=== PATIENT | female | born 1985 | race Caucasian/White ===

== ENCOUNTER → 2020-04-15 11:55 | Outpatient (BNVA) | payer OTHER, SELFPAY | PROVIDERS: Visit Provider Nurse Practitioner Family | DX: J02.9 Acute pharyngitis, unspecified (principal); Z11.59 Encounter for screening for other viral diseases | CPT/HCPCS: 87635 ==

== ENCOUNTER → 2023-05-11 10:10 | Outpatient (BNVA) | payer MEDICAID, SELFPAY | PROVIDERS: Visit Provider Nurse Practitioner | DX: M67.471 Ganglion, right ankle and foot (principal) | CPT/HCPCS: 73630 ==

== ENCOUNTER 2023-09-06 08:00 | Oncology outpatient (recurring) (ONCR) | payer MEDICAID, SELFPAY ==
--- OUTSIDE RECORDS SUMMARY | 2023-08-21 07:20 | XMS_ITS | Patient Health Record ---
Author Name Unknown Organization [employer] [place] Address [address] 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 Name Role Phone Michelle Knight Unavailable [phone] ALLERGIES Allergen (clinical drug ingredient) Drug/Non Drug Allergy documented on EMR Reaction Allergy Type Onset Date Status acetaminophen / oxycodone Percocet Unknown Drug Allergy Active RESULTS Component Value Reference Range Notes LIPID PANEL, STANDARD (7600) Reviewed date:05/19/2023 11:30:55 AM Interpretation: Performing Lab:[facility]-[id number] Archana JaramilloaKS[address] Gila Camacho MD Notes/Report: 0 0 0 0 CHOLESTEROL, TOTAL 187 <200 mg/dL HDL CHOLESTEROL 51 > OR = 50 mg/dL TRIGLYCERIDES 104 <150 mg/dL LDL-CHOLESTEROL 115 Reference range: <100 Desirable range <100 mg/dL for primary prevention; <70 mg/dL for patients with CHD or diabetic patients with > or = 2 CHD risk factors. LDL-C is now calculated using the Mir-Villanueva calculation, which is a validated novel method providing better accuracy than the Friedewald equation in the estimation of LDL-C. Mir GRIER et al. ANASTASIA. 2013;310(19): 9030-9571 (http://education.T[employer].com/faq/FAQ 164) CHOL/HDLC RATIO 3.7 <5.0 (calc) NON HDL CHOLESTEROL 136 <130 mg/dL (calc) For patients with diabetes plus 1 major ASCVD risk factor, treating to a non-HDL-C goal of <100 mg/dL (LDL-C of <70 mg/dL) is considered a therapeutic option. COMPREHENSIVE METABOLIC PANE Raj ([id number]) Reviewed date:05/19/2023 11:32:28 AM Interpretation:Normal Performing Lab:BRENDAN [facility]-[id number] Nathalie [facility], [id number] Gila Camacho MD Notes/Report: 0 0 0 0 GLUCOSE 80 65-99 mg/dL Fasting reference interval UREA NITROGEN (BUN) 8 7-25 mg/dL CREATININE 0.61 0.50-0.99 mg/dL EGFR 116 > OR = 60 mL/min/1.73m2 BUN/CREATININE RATIO SEE NOTE: 6-22 (calc) Not Reported: BUN and Creatinine are within reference range. SODIUM 137 135-146 mmol/L POTASSIUM 3.8 3.5-5.3 mmol/L CHLORIDE 105 98-110 mmol/L CARBON DIOXIDE 24 20-32 mmol/L CALCIUM 9.1 8.6-10.2 mg/dL PROTEIN, TOTAL 6.9 6.1-8.1 g/dL ALBUMIN 4.1 3.6-5.1 g/dL GLOBULIN 2.8 1.9-3.7 g/dL (calc) ALBUMIN/GLOBULIN RATIO 1.5 1.0-2.5 (calc) BILIRUBIN, TOTAL 0.3 0.2-1.2 mg/dL ALKALINE PHOSPHATASE 56 31-125 U/L AST 8 10-30 U/L ALT 8 6-29 U/L CBC (INCLUDES DIFF/PLT) (189 9) Reviewed date:05/19/2023 11:31:58 AM Interpretation:Abnormal Performing Lab:BRENDAN [facility]-[id number] Nathalie Glass, [id number] Gila Camacho MD Notes/Report: 0 0 0 0 WHITE BLOOD CELL COUNT 9.8 3.8-10.8 Thousand/ uL RED BLOOD CELL COUNT 4.62 3.80-5.10 Million/uL HEMOGLOBIN 10.3 11.7-15.5 g/dL HEMATOCRIT 35.3 35.0-45.0 % MCV 76.4 80.0-100.0 fL MCH 22.3 27.0-33.0 pg MCHC 29.2 32.0-36.0 g/dL RDW 16.7 11.0-15.0 % PLATELET COUNT 375 140-400 Thousand/uL MPV 11.4 7.5-12.5 fL ABSOLUTE NEUTROPHILS 5596 8008-2251 cells/uL ABSOLUTE LYMPHOCYTES 2666 850-3900 cells/uL ABSOLUTE MONOCYTES 892 200-950 cells/uL ABSOLUTE EOSINOPHILS 500 15-500 cells/uL ABSOLUTE BASOPHILS 147 0-200 cells/uL NEUTROPHILS 57.1 LYMPHOCYTES 27.2 MONOCYTES 9.1 EOSINOPHILS 5.1 BASOPHILS 1.5 TSH W/REFLEX TO FT4 (89446) Reviewed date:05/19/2023 11:32:08 AM Interpretation:Normal Performing Lab:[facility]-[id number] Schilling, [id number] Gila Camacho MD Notes/Report: 0 0 0 0 TSH W/REFLEX TO FT4 0.79 Reference Range > or = 20 Years 0.40-4.50 Ranges First trimester 0.26-2.66 Second trimester 0.55-2.73 Third trimester 0.43-2.91 IRON, TIBC AND FERRITIN PANE L (5616) Reviewed date:05/26/2023 08:42:08 AM Interpretation:Abnormal Performing Lab:[facility]-Obdulia Schilling, HbomhtVQ[address] Gila Camacho MD Notes/Report: 0 0 IRON, TOTAL 20 40-190 mcg/dL IRON BINDING CAPACITY 508 250-450 mcg/dL (destiny c) % SATURATION 4 16-45 % (calc) FERRITIN 2 16-154 ng/mL RETICULOCYTE COUNT (793) Reviewed date:05/26/2023 08:41:31 AM Interpretation:Normal Performing Lab:[facility]-[id number] Schilling, [id number] Gila Camacho MD Notes/Report: 0 0 RETICULOCYTE COUNT, AUTOMATED 1.4 RETICULOCYTE, ABSOLUTE 14232 77971-65[address] cells/ uL FECAL GLOBIN BY IMMUNOCHEMIS TRY ([id number]) Reviewed date:06/01/2023 04:29:01 PM Interpretation:Negative Performing Lab:[facility] LenexaKS[address] Gila Camacho MD Notes/Report: FASTING: UNKNOWN FECAL GLOBIN BY IMMUNOCHEMISTRY SEE NOTE FECAL GLOBIN BY IMMUNOCHEMISTRY Micro Number: [id number] Test Status: Final Specimen Source: Fecal Specimen Quality: Adequate Fecal Globin: Not Detected REASON FOR REFERRAL Reason consult please Diagnosis 1 Ganglion cyst of rig ht foot (M67.471) Referral Organization [facility] Referring Provider First Name Michelle Referring Provider Last Name Referring Provider [facility] Referred Provider [facility] Spin [facility], [facility] General Notes Michelle Knight 04/19 09:54:19 AM >xray is pending, Yesy Perla 05/11/2023 01:29:55 PM >Xray attached. , Faxed referral., Yesy Perla 06/09/2023 11:01:06 AM >Attempt TC to [facility] Ortho & Spine. Left message inquiring about pt's appt. Requested a returned call., Yesy Perla 06/14/2023 11:37:19 AM >TC to [facility] Ortho & Spine. Referral was sent to [facility] Podiatry by their clinic, which is [phone]. Confirmed pt's appt 06/19/23 at 1:30 pm. Pt notified of the appt by their clinic. Referral Priority Routine Referral Appointment Date 06/19/2023 Reason consult please Diagnosis 1 Iron deficiency anem ia, unspecified iron deficiency anemia type (D50.9) Referral Organization [facility] Referring Provider First Name Michelle Referring Provider Last Name [facility] Referred Provider [facility] General Notes Michelle Knight 05/20 10:10:16 AM >please send all labs, Yesy Perla 06/12/2023 01:54:11 PM >All labs attached. Referral faxed., Yesy Perla 06/28/2023 04:09:02 PM >TC to Dr. Ventura's office. Confirmed pt's appt 07-17-23 at 2:30 pm. Pt notified by their clinic. Referral Priority Routine Referral Appointment Date 07/17/2023 Reason consult please for e gd and colonoscopy d/t iron def anemia. Diagnosis 1 Iron deficiency anem ia, unspecified iron deficiency anemia type (D50.9) Referral Organization [facility] Referring Provider First Name Michelle Referring Provider Last Name [facility] Referred Provider Johnson Cooper General Notes Michelle Knight 05/20 10:11:42 AM >send all labs, including stool test results please, Yesy Perla 06/12/2023 01:48:59 PM >All labs attached. Referral faxed., Yesy Perla 06/29/2023 09:39:10 AM >TC to Dr. Cooper's office. Confirmed pt's appt 07/18/23 at 12:30 pm. Pt notified of appt by their clinic. Referral Priority Routine Referral Appointment Date 07/18/2023 MEDICATIONS Medication SIG (Take, Route, Frequency, Duration) Notes Start Date End Date Status Ferrlecit 12.5 MG/ML as directed Intravenous one time dose for 1 days 125mg, IV , diluted , over 1hr 07/19/2023 Active Cold & Flu teraflu Not-Takin g Ferrous Sulfate 325 (65 Fe) MG 1 tablet Orally Monday , Monday, Monday for 30 days 05/26/2023 Not-Taking Lisinopril 20 MG 1 tablet Orally Once a day for 90 days dose increase. thanks/mw 06/12/2023 Active Ventolin HFA 108 (90 Base) MCG/ACT 2 puff as needed for cough or congestion Inhalation every 4 hrs for 14 09/22/2022 Not-Taking SOCIAL HISTORY Sex Assigned At : Social History Observation Description Sex Assigned At Female PROBLEMS Problem Type ICD Code Onset Dates Problem Status W/U Status Risk SNOMED Code Notes Problem Primary hypertension (I10) Active confirmed 63998307 Problem Microcytic anemia (D50.9) Active confirmed 490108113 Problem Iron deficiency anemia, unspecified iron deficiency anemia type (D50.9) Active confirmed 28242189 VITAL SIGNS Heart Rate 77 /min 06/12/2023 Temperature 97.5 degrees Fahrenheit 06/12/2023 Height-cm 154.94 cm 06/12/2023 Oximetry 99 % 06/12/2023 Blood pressure diastolic 90 mm Hg 06/12/2023 Weight-kg 84.19 kg 06/12/2023 Height 61 in 06/12/2023 Blood pressure systolic 152 mm Hg 06/12/2023 Weight 185.6 lbs 06/12/2023 BMI 35.06 kg/m2 06/12/2023 Encounters Encounter Location Date Provider Diagnosis [address] [address] 07/06/2023 [facility] [address] [place] [address] 09/22/2022 Michelle Knight Exposure to the flu Z20.828 and Bronchitis J40 [address] [address] 05/11/2023 Michelle Ganglion cyst of rig ht foot M67.471 ; Primary hypertension I10 and Cigarette smoker motivated to quit F17.[address] [address] 05/25/2023 Michelle [place] Microcytic anemia D50.[address] [address] 06/12/2023 [facility] Iron deficiency anemia, unspecified iron deficiency anemia type D50.9 ; Primary hypertension I10 ; Intolerance of drug Z78.9 and Former smoker Z87.[address] [address] 05/19/2023 [facility] Microcytic anemia D50.[address] [address] 05/26/2023 Michelle [place] Iron deficiency anemia, unspecified iron deficiency anemia type D50.9 ; Primary hypertension I10 and Microcytic anemia D50.[address] [address] 06/01/[address] [address] 06/02/[address] [address] [facility], unspecified iron deficiency anemia type D50.9 ASSESSMENTS Encounter Date Diagnosis Assessment Notes Treatment Notes Treatment Clinical Notes 09/22/2022 Bronchitis (ICD-10 - J40) 09/22/2022 Exposure to the flu (ICD-10 - Z20.828) 05/11/2023 Primary hypertension (ICD-10 - I10) 05/11/2023 Ganglion cyst of right foot (ICD-10 - M67.471) XRAY AT [facility] TODAY 05/19/2023 Microcytic anemia (ICD-10 - D50.9) 05/25/2023 Microcytic anemia (ICD-10 - D50.9) labs drawn by Sotero Foster LPN 05/26/2023 Iron deficiency anemia, unspecified iron deficiency anemia type (ICD-10 - D50.9) 06/12/2023 Primary hypertension (ICD-10 - I10) med increase. bring cuff to next visit 06/12/2023 Iron deficiency anemia, unspecified iron deficiency anemia type (ICD-10 - D50.9) Iron-Rich Diet: Care Instructions material was printed 06/15/2023 Iron deficiency anemia, unspecified iron deficiency anemia type (ICD-10 - D50.9) 06/12/2023 Intolerance of drug (ICD-10 - Z78.9) will try to get approved for iv iron therapy 05/26/2023 Primary hypertension (ICD-10 - I10) 05/11/2023 Cigarette smoker motivated to quit (ICD-10 - F17.210) 05/26/2023 Microcytic anemia (ICD-10 - D50.9) 06/12/2023 Former smoker (ICD-10 - Z87.891) quit 05/21/23 PLAN OF TREATMENT Future Test Test Name Order Date IRON, TIBC AND FERRITIN PANEL (5616) CBC (INCLUDES DIFF/PLT) (6399) Next Appt Details Provider Name:Michelle Knight , 08/28/2023 08:15:00 AM, [address], [address], Provider Name:Michelle Knight , 09/04/2023 09:00:00 AM, [address], [facility], [place], [address], Insurance Providers Payer Name Payer Address Payer Phone Subscriber Number Group Number Insured Name Patient Relationship to Insured Coverage Start Date Coverage End Date [facility] [address] [place] [address] [id number] Dejon Rosemarie Self - patient is the insured MEDICAL (GENERAL) HISTORY Medical History History ICD Code last pap 2008. HD. normal
[2023-08-21 08:59] LABS: Basophils # 0.1 10^3/uL (0.0-0.1); Basophils % 1.5 %; Eosinophils # 0.7 10^3/uL (0.0-0.8); Eosinophils % 7.4 %; Hematocrit 35.2 % (36-47); Lymphocytes # 2.3 10^3/uL (0.8-4.8); Lymphocytes % 23.4 %; Mean Corpuscular HGB Conc 30.7 g/dL (30-55); Mean Corpuscular Hemoglobin 22.8 pg (27-33); Mean Corpuscular Volume 74.3 fl (85-98); Mean Platelet Volume 11.3 fL (7.4-10.4); Monocytes # 0.9 10^3/uL (0.2-0.9); Monocytes % 9.2 %; Neutrophils # 5.63 10^3/uL (1.8-7.7); Neutrophils % 58.4 %; Nucleated Red Blood Cells % 0 %; Platelet Count 322 10^3/cmm (157-399); Red Blood Count 4.74 10^6/uL (3.85-5.65); Red Cell Distribution Width 17.4 % (12.1-15.1); Reticulocyte % 1.3 % (0.5-2.0); White Blood Count 9.64 10^3/uL (3.29-11.43)
[2023-08-21 09:25] LABS: Alanine Aminotransferase 7 U/L (0-33); Albumin Level 4.1 g/dL (3.5-5.2); Alkaline Phosphatase 69 U/L (35-105); Anion Gap 15.9 (5-19); Aspartate Amino Transferase 10 U/L (0-32); Blood Urea Nitrogen 9 mg/dL (6-20); Calcium 9.1 mg/dL (8.5-10.5); Carbon Dioxide 20 mmol/L (22-29); Chloride 104 mmol/L (98-107); Ferritin 8 ng/mL (15-150); Globulin 3.2 g/dL (1.3-4.6); Glomerular Filtration Rate 110.7 mL/min (90-130); Glucose 93 mg/dL (65-115); Iron 16 ug/dL (37-145); Osmolality Calculated 280 mOsm/kg (285-295); Percent Saturation 3.6 % (20-50); Potassium 3.9 mmol/L (3.5-5.1); Sodium 136 mmol/L (136-145); Total Bilirubin 0.2 mg/dL (0.15-1.2); Total Iron Binding Capacity 433 mcg/dl; Total Protein 7.3 g/dL (6.6-8.7); Unsaturated Iron Binding 417 ug/dL (112-347)
[2023-08-21 09:41] LABS: Vitamin B12 323 pg/mL (232-1245)
[2023-08-21 09:42] LABS: Folate Level 6.8 ng/mL (4.8-37.3)
[2023-08-25 08:05] VITALS: BP 151/99; PULSE 74; RESP 16; TEMP 36.8; O2SAT 99
[2023-08-25] MEDS: sodium chloride 0.9% (100 ml) 100 ML 75 ML (08:34)
[2023-08-25] MEDS: iron sucrose 200 MG in sodium chloride 0.9% (100 ml) 100 ML 220 MG IV (08:35)
[2023-08-25 09:15] VITALS: BP 143/81; PULSE 61; RESP 16; TEMP 36.8; O2SAT 100
[2023-08-28] MEDS: iron sucrose 200 MG in sodium chloride 0.9% (100 ml) 100 ML 220 MG IV (09:18)
[2023-08-28 09:45] VITALS: BP 158/102; PULSE 63; TEMP 36.4; O2SAT 99
[2023-08-30] MEDS: iron sucrose 200 MG in sodium chloride 0.9% (100 ml) 100 ML 220 MG IV (09:42)
[2023-08-30] MEDS: sodium chloride 0.9% 250 ML 75 ML IV (09:42)
[2023-08-30 10:20] VITALS: BP 148/95; PULSE 75; RESP 16; TEMP 36.7; O2SAT 99
[2023-09-04 08:15] VITALS: BP 144/92; PULSE 73; RESP 16; TEMP 36.8; O2SAT 99
[2023-09-04] MEDS: sodium chloride 0.9% 250 ML 75 ML IV (08:23)
[2023-09-04] MEDS: iron sucrose 200 MG in sodium chloride 0.9% (100 ml) 100 ML 220 MG IV (08:23)
[2023-09-04 09:00] VITALS: BP 144/92; PULSE 73; RESP 16; TEMP 36.8; O2SAT 99
[2023-09-06 08:00] VITALS: BP 130/88; PULSE 71; RESP 16; TEMP 37.2; O2SAT 99
[2023-09-06] MEDS: sodium chloride 0.9% 250 ML 75 ML IV (08:16)
[2023-09-06] MEDS: iron sucrose 200 MG in sodium chloride 0.9% (100 ml) 100 ML 220 MG IV (08:33)
[2023-09-06 09:15] VITALS: BP 129/86; PULSE 62; RESP 16; TEMP 37.2; O2SAT 99
== END 2023-09-17 23:59 | disposition home or self-care (01) ==
PROVIDERS: Visit Provider Internal Medicine
DX: Z53.9 Procedure and treatment not carried out, unspecified reason (principal); D50.9 Iron deficiency anemia, unspecified
CPT/HCPCS: 36415; 80053; 82607; 82728; 82746; 83540; 83550; 85025; 85045; 96365; J1756; J7050

== ENCOUNTER 2023-09-29 07:05 | Day surgery (SDC) | payer MEDICAID, SELFPAY ==
--- OUTSIDE RECORDS SUMMARY | 2023-08-28 09:45 | XMS_ITS | Patient Health Record ---
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 Mir GRIER et al. ANASTASIA. 2013;310(19): 0891-1899 (http://education.[employer].com/faq/FAQ 164) CHOL/HDLC RATIO 3.7 <5.0 (calc) NON HDL CHOLESTEROL 136 <130 mg/dL (calc) For patients with diabetes plus 1 major ASCVD risk factor, treating to a non-HDL-C goal of <100 mg/dL (LDL-C of <70 mg/dL) is considered a therapeutic option. COMPREHENSIVE METABOLIC PANE Raj (29201) Reviewed date:05/19/2023 11:32:28 AM Interpretation:Normal Performing Lab:BRENDAN [facility]-[id number] Nathalie [facility], YvzpedPM[address] Gila Camacho MD Notes/Report: 0 0 0 [...] ALT 8 6-29 U/L CBC (INCLUDES DIFF/PLT) (089 9) Reviewed date:05/19/2023 11:31:58 AM Interpretation:Abnormal Performing Lab:BRENDAN [facility]-[id number] Nathalie Glass, [id number] Gila Camacho MD Notes/Report: 0 0 0 0 WHITE BLOOD CELL COUNT 9.8 3.8-10.8 Thousand/ uL RED BLOOD CELL COUNT 4.62 3.80-5.10 Million/uL HEMOGLOBIN 10.3 11.7-15.5 g/dL HEMATOCRIT 35.3 35.0-45.0 % MCV 76.4 80.0-100.0 fL MCH 22.3 27.0-33.0 pg MCHC 29.2 32.0-36.0 g/dL RDW 16.7 11.0-15.0 % PLATELET COUNT 375 140-400 Thousand/uL MPV 11.4 7.5-12.5 fL ABSOLUTE NEUTROPHILS 5596 7774-2400 cells/uL ABSOLUTE LYMPHOCYTES 2666 850-3900 cells/uL ABSOLUTE MONOCYTES 892 200-950 cells/uL ABSOLUTE EOSINOPHILS 500 15-500 cells/uL ABSOLUTE BASOPHILS 147 0-200 cells/uL NEUTROPHILS 57.1 LYMPHOCYTES 27.2 MONOCYTES 9.1 EOSINOPHILS 5.1 BASOPHILS 1.5 TSH W/REFLEX TO FT4 (86444) Reviewed date:05/19/2023 11:32:08 AM Interpretation:Normal Performing Lab:[facility]-[id number] Schilling, TwizytQE[address] Gila Camacho MD Notes/Report: 0 0 0 0 TSH W/REFLEX TO FT4 0.79 Reference Range > or = 20 Years 0.40-4.50 Ranges First trimester 0.26-2.66 Second trimester 0.55-2.73 Third trimester 0.43-2.91 IRON, TIBC AND FERRITIN PANE L (5616) Reviewed date:05/26/2023 08:42:08 AM Interpretation:Abnormal Performing Lab:[facility]-Obdulia Schilling, KexxonHK[address] Gila Camacho MD Notes/Report: 0 0 IRON, TOTAL 20 40-190 mcg/dL IRON BINDING CAPACITY 508 250-450 mcg/dL (destiny c) % SATURATION 4 16-45 % (calc) FERRITIN 2 16-154 ng/mL RETICULOCYTE COUNT (793) Reviewed date:05/26/2023 08:41:31 AM Interpretation:Normal Performing Lab:[facility]-[id number] Schilling, KtqjtmHV[address] Gila Camacho MD Notes/Report: 0 0 RETICULOCYTE COUNT, AUTOMATED 1.4 RETICULOCYTE, ABSOLUTE 03458 [address] cells/ uL FECAL GLOBIN BY IMMUNOCHEMIS TRY (26821) Reviewed date:06/01/2023 04:29:01 PM Interpretation:Negative Performing Lab:[facility] LenexaKS[address] Gila Camacho MD Notes/Report: FASTING: UNKNOWN FECAL GLOBIN BY IMMUNOCHEMISTRY SEE NOTE FECAL GLOBIN BY IMMUNOCHEMISTRY Micro Number: [id number] Test Status: Final Specimen Source: Fecal Specimen Quality: Adequate Fecal Globin: Not Detected REASON FOR REFERRAL Reason consult please Diagnosis 1 Ganglion cyst of rig ht foot (M67.471) Referral Organization [facility] Referring Provider First Name Michelle Referring Provider Last Name Referring Provider [facility] Referred Provider Orthopedics And Spin [facility], [facility] General Notes Michlele Knight 04/19 09:54:19 AM >xray is pending, Yesy Perla 05/11/2023 01:29:55 PM >Xray attached. , Faxed referral., Yesy Perla 06/09/2023 11:01:06 AM >Attempt TC to [facility] Ortho & Spine. Left message inquiring about pt's appt. Requested a returned call., Yesy Pelra 06/14/2023 11:37:19 AM >TC to [facility] Ortho & Spine. Referral was sent to [facility] Podiatry by their clinic, which is [phone]. Confirmed pt's appt 06/19/23 at 1:30 pm. Pt notified of the appt by their clinic. Referral Priority Routine Referral Appointment Date 06/19/2023 Reason consult please Diagnosis 1 Iron deficiency anem ia, unspecified iron deficiency anemia type (D50.9) Referral Organization [facility] Referring Provider First Name Michelle Referring Provider Last Name [facility] Referred Provider Prieto Ventura Md [...] iron deficiency anemia type (D50.9) Referral Organization [facility] Referring Provider First Name Michelle Referring Provider Last Name [facility] Referred Provider Johnson Cooper General [...] Notes Problem Primary hypertension (I10) Active confirmed 74038010 Problem Microcytic anemia (D50.9) Active confirmed 650683581 Problem Iron deficiency anemia, unspecified iron deficiency anemia type (D50.9) Active confirmed 30081667 VITAL SIGNS Heart Rate 77 /min 06/12/2023 Temperature 97.5 degrees Fahrenheit 06/12/2023 Height-cm 154.94 cm 06/12/2023 Oximetry 99 % 06/12/2023 Blood pressure diastolic 90 mm Hg 06/12/2023 Weight-kg 84.19 kg 06/12/2023 Height 61 in 06/12/2023 Blood pressure systolic 152 mm Hg 06/12/2023 Weight 185.6 lbs 06/12/2023 BMI 35.06 kg/m2 06/12/2023 Encounters Encounter Location Date Provider Diagnosis [address] [address] 07/06/2023 Michelle [place] [address] [address] 08/28/[address] [address] 09/22/2022 Michelle Knight Exposure to the flu Z20.828 and Bronchitis J40 [address] [address] 05/11/2023 Michelle Knight Ganglion cyst of rig ht foot M67.471 ; Primary hypertension I10 and Cigarette smoker motivated to quit F17.[address] [address] 05/25/2023 Michelle Knight Microcytic anemia D50.[address] [address] 06/12/2023 Michelle [place] Iron deficiency anemia, unspecified iron deficiency anemia type D50.9 ; Primary hypertension I10 ; Intolerance of drug Z78.9 and Former smoker Z87.[address] [address] 05/19/2023 Michelle Knight Microcytic anemia D50.[address] [address] 05/26/2023 Michelle [place] Iron deficiency anemia, unspecified iron deficiency anemia type D50.9 ; Primary hypertension I10 and Microcytic anemia D50.[address] [address] 06/01/[address] [address] 06/02/[address] [address] 06/15/2023 Michelle [place] Iron deficiency anemia, unspecified iron deficiency anemia type D50.9 ASSESSMENTS Encounter Date Diagnosis Assessment Notes Treatment Notes Treatment Clinical Notes 09/22/2022 Bronchitis (ICD-10 - J40) 09/22/2022 Exposure to the flu (ICD-10 - Z20.828) 05/11/2023 Primary hypertension (ICD-10 - I10) 05/11/2023 Ganglion cyst of right foot (ICD-10 - M67.471) XRAY AT [facility] TODAY 05/19/2023 Microcytic anemia (ICD-10 - [...] FERRITIN PANEL (5616) CBC (INCLUDES DIFF/PLT) (6399) 3 Insurance Providers Payer Name Payer Address Payer Phone Subscriber Number Group Number Insured Name Patient Relationship to Insured Coverage Start Date Coverage End Date [facility] [address] [facility] [phone] [id number] Hand, Rosemarie Self - patient is the insured MEDICAL (GENERAL) HISTORY Medical History History ICD Code last pap 2008. HCHD. normal
[2023-09-29] VITALS (8 sets, daily range): BP systolic 100–165; BP diastolic 60–103; PULSE 60–75; RESP 14–17; TEMP 36.3–36.8; O2SAT 94–100; BMI 31.6
--- OUTSIDE RECORDS SUMMARY | 2023-09-29 07:08 | XMS_ITS | Patient Health Record ---
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 Mir GRIER et al. ANASTASIA. 2013;310(19): 6028-5069 (http://education.[employer].com/faq/FAQ 164) CHOL/HDLC RATIO 3.7 <5.0 (calc) NON HDL CHOLESTEROL 136 <130 mg/dL (calc) For patients with diabetes plus 1 major ASCVD risk factor, treating to a non-HDL-C goal of <100 mg/dL (LDL-C of <70 mg/dL) is considered a therapeutic option. COMPREHENSIVE METABOLIC PANE Raj (90236) Reviewed date:05/19/2023 11:32:28 AM Interpretation:Normal Performing Lab:[facility]-[id number] Nathalie [facility], [id number] Gila Camacho MD Notes/Report: 0 0 0 [...] ALT 8 6-29 U/L CBC (INCLUDES DIFF/PLT) (319 9) Reviewed date:05/19/2023 11:31:58 AM Interpretation:Abnormal Performing Lab:[facility]-[id number] Nathalie Glass, DvlzdcLF[address] Gila Camacho MD Notes/Report: 0 0 0 0 WHITE BLOOD CELL COUNT 9.8 3.8-10.8 Thousand/ uL RED BLOOD CELL COUNT 4.62 3.80-5.10 Million/uL HEMOGLOBIN 10.3 11.7-15.5 g/dL HEMATOCRIT 35.3 35.0-45.0 % MCV 76.4 80.0-100.0 fL MCH 22.3 27.0-33.0 pg MCHC 29.2 32.0-36.0 g/dL RDW 16.7 11.0-15.0 % PLATELET COUNT 375 140-400 Thousand/uL MPV 11.4 7.5-12.5 fL ABSOLUTE NEUTROPHILS 5596 7770-9078 cells/uL ABSOLUTE LYMPHOCYTES 2666 850-3900 cells/uL ABSOLUTE MONOCYTES 892 200-950 cells/uL ABSOLUTE EOSINOPHILS 500 15-500 cells/uL ABSOLUTE BASOPHILS 147 0-200 cells/uL NEUTROPHILS 57.1 LYMPHOCYTES 27.2 MONOCYTES 9.1 EOSINOPHILS 5.1 BASOPHILS 1.5 TSH W/REFLEX TO FT4 (67914) Reviewed date:05/19/2023 11:32:08 AM Interpretation:Normal Performing Lab:[facility]-[id number] Schilling, [id number] Gila Camacho MD Notes/Report: 0 0 0 0 TSH W/REFLEX TO FT4 0.79 Reference Range > or = 20 Years 0.40-4.50 Ranges First trimester 0.26-2.66 Second trimester 0.55-2.73 Third trimester 0.43-2.91 IRON, TIBC AND FERRITIN PANE L (5616) Reviewed date:05/26/2023 08:42:08 AM Interpretation:Abnormal Performing Lab:[facility]-Obdulia Schilling, [id number] Gila Camacho MD Notes/Report: 0 0 IRON, TOTAL 20 40-190 mcg/dL IRON BINDING CAPACITY 508 250-450 mcg/dL (destiny c) % SATURATION 4 16-45 % (calc) FERRITIN 2 16-154 ng/mL RETICULOCYTE COUNT (793) Reviewed date:05/26/2023 08:41:31 AM Interpretation:Normal Performing Lab:[facility]-Gimruk71827Saul Schilling, QsrvrxMS[address] Gila Camacho MD Notes/Report: 0 0 RETICULOCYTE COUNT, AUTOMATED 1.4 RETICULOCYTE, ABSOLUTE 27754 48801-[address] cells/ uL FECAL GLOBIN BY IMMUNOCHEMIS TRY ([id number]) Reviewed date:06/01/2023 04:29:01 PM Interpretation:Negative Performing Lab:[facility] [id number] Gila Camacho MD Notes/Report: FASTING: UNKNOWN FECAL GLOBIN BY IMMUNOCHEMISTRY SEE NOTE FECAL GLOBIN BY IMMUNOCHEMISTRY Micro Number: [id number] Test Status: Final Specimen Source: Fecal Specimen Quality: Adequate Fecal Globin: Not Detected REASON FOR REFERRAL Reason consult please Diagnosis 1 Ganglion cyst of rig ht foot (M67.471) Referral Organization [facility] Referring Provider First Name Michelle Referring Provider Last Name Referring Provider [facility] Referred Provider [facility], [facility] General Notes Michelle Knight 04/19 09:54:19 AM >xray is pending, eYsy Perla 05/11/2023 01:29:55 PM >Xray attached. , Faxed referral., Yesy Perla 06/09/2023 11:01:06 AM >Attempt TC to [facility] Ortho [facility] Spine. Left message inquiring about pt's appt. Requested a returned call., Yesy Perla 06/14/2023 11:37:19 AM >TC to [facility] Ortho & Spine. Referral was sent to [facility] Podiatry by their clinic, which is [phone]. Confirmed pt's appt 06/19/23 at 1:30 pm. Pt notified of the appt by their clinic. Referral Priority Routine Referral Appointment Date 06/19/2023 Reason consult please Diagnosis 1 Iron deficiency anem ia, unspecified iron deficiency anemia type (D50.9) Referral Organization [employer] Referring Provider First Name Michelle Referring Provider Last Name [facility]erred Provider Prieto [facility] General Notes [...] iron deficiency anemia type (D50.9) Referral Organization [employer] Referring Provider First Name Michelle Referring Provider Last Name [facility] Referred Provider Johnson Cooper General Notes Michelle [...] Notes Problem Primary hypertension (I10) Active confirmed [id number] Problem Microcytic anemia (D50.9) Active confirmed [id number] Problem Iron deficiency anemia, unspecified iron deficiency anemia type (D50.9) Active confirmed [id number] VITAL SIGNS Heart Rate 77 /min 06/12/2023 Temperature 97.5 degrees Fahrenheit 06/12/2023 Height-cm 154.94 cm 06/12/2023 Oximetry 99 % 06/12/2023 Blood pressure diastolic 90 mm Hg 06/12/2023 Weight-kg 84.19 kg 06/12/2023 Height 61 in 06/12/2023 Blood pressure systolic 152 mm Hg 06/12/2023 Weight 185.6 lbs 06/12/2023 BMI 35.06 kg/m2 06/12/2023 Encounters Encounter Location Date Provider Diagnosis [address] [address] 07/06/2023 Michelle [facility] [address] [place] [phone] 08/28/[address] [address] 09/04/[address] [address] 05/11/2023 Michelle Knight Ganglion cyst of rig ht foot M67.471 ; Primary hypertension I10 and Cigarette smoker motivated to quit F17.[address] [address] 05/25/2023 Michelle Knight Microcytic anemia D50.[address] [address] 06/12/2023 Michelle Knight Iron deficiency anemia, unspecified iron deficiency anemia type D50.9 ; Primary hypertension I10 ; Intolerance of drug Z78.9 and Former smoker Z87.[address] [address] 05/19/2023 Michelle Knight Microcytic anemia D50.[address] [address] 05/26/2023 Michelle Knight Iron deficiency anemia, unspecified iron deficiency anemia type D50.9 ; Primary hypertension I10 and Microcytic anemia D50.[address] [address] 06/01/[address] [address] 06/02/[address] [address] 06/15/2023 Michelle Knight Iron deficiency anemia, unspecified iron deficiency anemia type D50.9 ASSESSMENTS Encounter Date Diagnosis Assessment Notes Treatment Notes Treatment Clinical Notes 05/11/2023 Primary hypertension (ICD-10 - I10) 05/11/2023 Ganglion cyst of right foot (ICD-10 - M67.471) XRAY AT [facility] TODAY 05/19/2023 Microcytic anemia (ICD-10 - [...] Coverage Start Date Coverage End Date Home [facility] [address] [place] [address] [id number] HandRosemarie Self - patient is the insured MEDICAL (GENERAL) HISTORY Medical History History ICD Code last pap 2008. HCHD. normal
[2023-09-29] MEDS: gabapentin 300 mg Capsule PO (07:39)
[2023-09-29] MEDS: sodium chloride 0.9% 1,000 ML 30 ML IV (07:39)
[2023-09-29] MEDS: CELEcoxib 200 mg Capsule 400 MG PO (07:39)
[2023-09-29 07:50] LABS: OR HCG Qualitative Urine Negative (Negative)
--- NOTE | 2023-09-29 08:56 | ANES.PREANE2 ---
Pre-Anesthetic Assessment Height/Weight: Height 1.57 m Weight 78.471 kg Temp Pulse Resp BP Pulse Ox O2 Del Method 97.4 F L 69 17 165/103 98 Room Air 09/29/23 07:27 09/29/23 07:27 09/29/23 07:27 09/29/23 07:27 09/29/23 07:27 09/29/23 07:36 Preop Diagnosis: Ganglion cyst right foot Operation Date: 09/29/23 08:55 Proposed Procedures p :?Neuroplasty right foot and Excision of ganglion cyst right foot 70459,45407,G57.61,M67.471(Right) - Salvador Rubalcava DPM Last intake: Intake Last Liquid Date 09/28/23 Last Liquid Time 22:00 Last Solid Date 09/28/23 Last Solid Time 22:00 Social Tobacco (Cannabis ) and No alcohol Exam alert, oriented x 3, clear to auscultation bilaterally and regular rate & rhythm Airway Submandibular: within normal limits Cervical ROM: within normal limits Mallampati: Class I History/ROS No significant history except as noted Anesthetic Plan ASA status: 2 Anesthesia: MAC (Sedation disc) Medications/Allergies Home Medications Medication Instructions Recorded Confirmed Last Taken Type lisinopril 20 mg tablet 20 mg PO DAILY 08/21/23 09/28/23 09/28/23 History pantoprazole 40 mg tablet,delayed 40 mg PO DAILY #30 tabs 08/21/23 09/28/23 09/28/23 Rx release (Protonix) Allergies Allergy/AdvReac Type Severity Reaction Status Date / Time acetaminophen [From Percocet] Allergy ADR-Nausea Verified 09/29/23 07:23 hydrocodone Allergy ADR-Nausea Verified 09/29/23 07:23 oxycodone [From Percocet] Allergy ADR-Nausea Verified 09/29/23 07:23 Current Medications Generic Name Dose Route Start Last Admin Trade Name Freq PRN Reason Stop Dose Admin Sodium Chloride 1,000 mls @ 30 mls/hr 09/29/23 07:15 09/29/23 07:39 Sodium Chloride 0.9% IV 09/30/23 07:14 30 mls/hr .Q24H MO Administration PFSH Anesthesia Female Reproductive History Date of last menstrual period: 09/22/23 Data Anesthesia Cardiac Studies: No Data to Display
--- NOTE | 2023-09-29 09:00 | P.HPUD_ITS ---
Surgery/Procedure H&P Update DATE OF PROCEDURE: September 29, 2023 DATE H&P PERFORMED: 09/29/23 H&P UPDATE INFORMATION: I have reviewed H&P completed within last 30 days, I have examined patient prior to procedure, No changes to prior documentation and H&P is in [facility] EMR on date indicated CHANGES TO PREVIOUS DOCUMENTATION: None PREOP DIAGNOSIS: Ganglion cyst right foot PLANNED PROCEDURE: Operation Date: 09/29/23 08:55 Proposed Procedures p :?Neuroplasty right foot and Excision of ganglion cyst right foot 85962,14504,G57.61,M67.471(Right) - Salvador Rubalcava DPM
--- NOTE | 2023-09-29 09:01 | P.HP_ITS ---
Providers/Chief Complaint Chief Complaint: M67.471 History of Present Illness 38 year old female patient presenting to clinic for evaluation of a mass on her right mid-foot. Patient states that mass has been present for about 14 years. She also states that mass was non-painful until April 2023. Patient reports having shooting pain when wearing shoes or anything touching it hurts. Patient denies any trauma or injury to right foot. She has an impressive nodule present to right mid-foot. It is so big that she can no longer wear regular shoes, states that she wanted it removed years ago but she was a single mother of 4 children, is now able to take time to recover would like to have it removed at next available opportunity. Describes the nature of the pain as sharp and nervelike. She has a colonoscopy coming up in first week of September 2023. Patient denies any subjective nausea, vomiting, fever, chills, shortness of breath or chest pain. Review of Systems General: Reports: 10 or more systems reviewed and unremarkable except in HPI and below Const: Denies: fever(s) or chills Eyes: Denies: change in vision Card: Denies: chest pain or palpitations Resp: Denies: dyspnea or productive cough GI: Denies: abdominal pain, nausea or vomiting : Denies: flank pain Musc: Reports: extremity pain, joint pain, joint stiffness, limited range of motion and deformity Skin/Breast: Reports: skin tenderness; Denies: rash Neuro: Reports: difficulty walking; Denies: numbness in extremities, sensory changes or frequent falls Psych: Denies: suicidal ideation Luke/Lymph: Denies: easy bruising Medications/Allergies Home Medications Medication Instructions Recorded Confirmed Last Taken Type lisinopril 20 mg tablet 20 mg PO DAILY 08/21/23 09/28/23 09/28/23 History pantoprazole 40 mg tablet,delayed 40 mg PO DAILY #30 tabs 08/21/23 09/28/23 09/28/23 Rx release (Protonix) Allergies Allergy/AdvReac Type Severity Reaction Status Date / Time acetaminophen [From Percocet] Allergy ADR-Nausea Verified 09/29/23 07:23 hydrocodone Allergy ADR-Nausea Verified 09/29/23 07:23 oxycodone [From Percocet] Allergy ADR-Nausea Verified 09/29/23 07:23 [facility] Female Reproductive History: Date of last menstrual period: 09/22/23 Vital Signs Vitals Signs: Last Vital Signs Temp 97.4 F L 09/29/23 07:27 Pulse 69 09/29/23 07:27 Resp 17 09/29/23 07:27 BP 165/103 09/29/23 07:27 Pulse Ox 98 09/29/23 07:27 O2 Del Method Room Air 09/29/23 07:36 Weight: Weight last 48 hrs Weight 173 lb Physical Exam Narrative: EXAM NARRATIVE: Patient is alert and oriented ?3 and in no acute distress. The following is a focused bilateral lower extremity exam. VASCULAR: Dorsalis pedis and posterior tibial arteries palpable +2. Capillary refill time less than 3 seconds to the distal hallux bilaterally. Calf is supple and nontender proximally and distally. No pedal edema appreciated. Pedal hair growth present. NEUROLOGICAL: Epicritic and protopathic sensations grossly intact to the lower extremities. +2 Achilles tendon reflex noted bilaterally. Positive Tinel on percussion of the deep peroneal nerve right foot. DERMATOLOGICAL: Lower extremity skin is well-hydrated, normal texture and turgor. There are no open sores or lesions noted to the lower extremities. No erythema or ecchymosis present to the bilateral legs and feet. MUSCULOSKELETAL: Pain to palpation soft tissue mass at right dorsal foot, is fluid-filled and transilluminates is well-circumscribed located at the dorsal aspect of the right second tarsometatarsal joint. Soft tissue mass measures 2.5 cm x 2.5 cm. Muscle strength graded +5 for dorsiflexion plantarflexion, lizandro ion and inversion of right foot and toes. CARDIOVASCULAR: S1, S2, normal rate, normal rhythm. Dorsalis pedis and posterior tibial arteries palpable. LUNGS: Clear to auscltation, no use of acessory muscles, no crackles or wheezes. A&P Assessment and plan (1) Neuritis of right foot: (2) Ganglion cyst of right foot: Plan Patient examined evaluated, findings and treatment options discussed with patient at length. She has nerve entrapment requiring neuroplasty to the right deep peroneal nerve, adjacent ganglion cyst also symptomatic and patient wishing for surgical excision. I reviewed at length with the patient, the risks, potential complications, benefits, alternatives, expectations, and typical outcomes associated with the surgery. The risks and potential complications were explained in detail, including but not limited to infection, wound dehiscence or soft tissue complications, bleeding and hematoma, chronic edema, neuritis or nerve damage producing numbness or chronic pain, CRPS, failure to relieve pain or worsening pain, thick / painful / unsightly scar, limited motion / stiffness, malposition, delayed union, malunion, or nonunion, fracture, reaction to implants, anesthetic complications, venous thromboembolism, and deformity recurrence. I discussed the notion of no regrets with the patient as it pertains to complications and outcomes. The patient seemed to understand the nature of the proposed care and required convalescence. They asked appropriate questions, answered to their satisfaction. They are aware no guarantees can be made as to a satisfactory outcome and they understand there may be other possible unforeseen complications or outcomes not listed here that will be treated accordingly if they arise. There were no written or implied guarantees given to the patient. They gave informed consent to proceed. Neuroplasty and ganglion cyst excision right foot 09/01/2024 outpatient Local MAC versus LMA per anesthesia preference Gurney, supine 60 minutes Coding Level of Care Code Acute Code for Chg Fwd Diagnoses Neuritis of right foot G57.91 Ganglion cyst of right foot M67.471
[2023-09-29] MEDS: ceFAZolin 2,000 MG in sodium chloride 0.9% (plus) 50 ML 100 MG IV (09:10)
[2023-09-29] MEDS: BUPivacaine 0.5% INJ 10 mL 20 ML INJECTION (09:31)
[2023-09-29] MEDS: BUPivacaine liposome 13.3 mg/mL SDV 10 mL 133 MG INJECTION (09:34)
--- NOTE | 2023-09-29 09:42 | P.BOP_ITS ---
Date of Procedure: 09/29/23 Surgeon: Salvador Rubalcava DPM Closing Supervisor(s): Alirio Procedure(s) performed: Excision of soft tissue mass right dorsal foot Findings of the procedure(s): Soft tissue mass consistent with fibroma Estimated blood loss: 2 mL Specimen(s) removed: Soft tissue mass right dorsal foot sent to pathology Post-operative diagnosis: Soft tissue mass right dorsal foot No complications with anesthesia or procedure
--- NOTE | 2023-09-29 09:42 | PM.OP ---
Operative Report Date of procedure: September 29, 2023 Pre-op diagnosis: (1) Neuritis of right foot: (2) Ganglion cyst of right foot: Post-op diagnosis: (1) Neuritis of right foot: (2) Ganglion cyst of right foot: Procedure done: Neuroplasty right foot. CPT code 76328 Excision of ganglion cyst right foot. CPT code 04886 Implants: 3-0 Vicryl, 4-0 Vicryl, 4-0 nylon Pathology: Soft tissue mass right foot sent to pathology Surgeon: Salvador Rubalcava DPM Data Mining Analyst: Alirio Estimated blood loss: 2 14 IV fluids: 0 Urine output: 0 Complications: None Brief History: Patient examined evaluated, findings and treatment options discussed with patient at length. She has nerve entrapment requiring neuroplasty to the right deep peroneal nerve, adjacent ganglion cyst also symptomatic and patient wishing for surgical excision. I reviewed at length with the patient, the risks, potential complications, benefits, alternatives, expectations, and typical outcomes associated with the surgery. The risks and potential complications were explained in detail, including but not limited to infection, wound dehiscence or soft tissue complications, bleeding and hematoma, chronic edema, neuritis or nerve damage producing numbness or chronic pain, CRPS, failure to relieve pain or worsening pain, thick / painful / unsightly scar, limited motion / stiffness, malposition, delayed union, malunion, or nonunion, fracture, reaction to implants, anesthetic complications, venous thromboembolism, and deformity recurrence. I discussed the notion of no regrets with the patient as it pertains to complications and outcomes. The patient seemed to understand the nature of the proposed care and required convalescence. They asked appropriate questions, answered to their satisfaction. They are aware no guarantees can be made as to a satisfactory outcome and they understand there may be other possible unforeseen complications or outcomes not listed here that will be treated accordingly if they arise. There were no written or implied guarantees given to the patient. They gave informed consent to proceed. Procedure: Under mild sedation the patient was brought to the operating room and remained on the gurney in supine position. A timeout was performed. Anesthesia was then administered by the anesthesia service. Local anesthesia was injected by the cell consisting of 20 cc of 0.5% Marcaine plain in a V-block fashion proximal to the soft tissue mass noted to the dorsum of the right midfoot followed by 10 cc of Exparel subcutaneously even more proximal in a grid like fashion. Well-padded pneumatic tourniquet was applied to the right ankle. The right lower extremity was scrubbed, prepped and draped utilizing normal aseptic technique. Right foot was then exanguinated with an Esmarch bandage and the tourniquet inflated to 250 mmHg. Tension was directed to the dorsum of the right midfoot where a palpable soft tissue mass was appreciated. Directly over the soft tissue mass which was at the level of the neurovascular bundle the dorsum of the right midfoot a linear longitudinal incision was made carefully through skin with a #15 blade with dissection carried down through subcutaneous tissue utilizing sharp and blunt technique. Care was taken to retract and preserve neurovascular and tendinous structures. All bleeders were ligated and cauterized as necessary. The deep peroneal nerve was encountered and noted to be fibrosed within the soft tissue mass this was carefully mobilized and through neurolysis and adhesions were sharply released and the deep peroneal nerve was mobilized medially and further protected for the remainder of the procedure. The soft tissue mass was circumscribed circumferentially and removed in total, was consistent with a multilobulated ganglion cyst this was sent to pathology for further review. The pedicle was tied off with 3-0 Vicryl. The incision was then irrigated with copious amounts of sterile saline solution. This was then closed in a layered fashion with deep tissues reapproximated with 3-0 Vicryl, subcutaneous tissue with 4-0 Vicryl and skin with 4-0 nylon. The incision was then dressed with Adaptic, sterile 4 x 4's, Kerlix and Sundeep wrap and the patient was dispensed a postop shoe to be worn when ambulating. Tourniquet was deflated and a prompt hyperemic response was noted to the distal digits of the right foot. Patient tolerated the procedure and anesthesia well and was transferred to the PACU with vital signs stable and vascular status intact. Following a period of postoperative monitoring she will be discharged home. Was given at home care instructions, scheduled follow-up and my cell phone number to contact with any postoperative questions or concerns.
--- NOTE | 2023-09-29 09:51 | ANE.PACU2 ---
Inpatient post-anesthesia follow up: Vital signs: Temperature 97.6 F Pulse Rate 60 Respiratory Rate 16 Blood Pressure 105/60 Pulse Oximetry 94 Oxygen Delivery Me thod Room Air Oxygen Flow Rate 6 Fraction of Inspir ed Oxygen Hydration adequate: Yes Nausea and vomiting: No Pain level: 2 Mental status: Baseline
[2023-09-29] MEDS: TRAMadol 50 mg Tablet 100 MG PO (10:18)
== END 2023-09-29 10:43 | disposition home or self-care (01) ==
PROVIDERS: Visit Provider Podiatrist Foot & Ankle Surgery
PROC: (CPT 28090; principal; 2023-09-29 08:45)
DX: G57.91 Unspecified mononeuropathy of right lower limb (principal); M67.471 Ganglion, right ankle and foot
CPT/HCPCS: 28090; 64702; 81025; 84703; 88304; C9290; J0690; J2250; J2704; J3010; J3490; J7030

== ENCOUNTER 2023-10-26 12:49 | Oncology outpatient (recurring) (ONCR) | payer MEDICAID, SELFPAY ==
[2023-10-26 13:32] LABS: Reticulocyte % 0.9 % (0.5-2.0)
[2023-10-26 13:34] LABS: Alanine Aminotransferase 10 U/L (0-33); Albumin Level 4.3 g/dL (3.5-5.2); Alkaline Phosphatase 59 U/L (35-105); Anion Gap 14.4 (5-19); Aspartate Amino Transferase 10 U/L (0-32); Blood Urea Nitrogen 8 mg/dL (6-20); Calcium 9.4 mg/dL (8.5-10.5); Carbon Dioxide 24 mmol/L (22-29); Chloride 101 mmol/L (98-107); Ferritin 54 ng/mL (15-150); Globulin 3.2 g/dL (1.3-4.6); Glomerular Filtration Rate 110.7 mL/min (90-130); Glucose 98 mg/dL (65-115); Iron 66 ug/dL (37-145); Osmolality Calculated 278 mOsm/kg (285-295); Percent Saturation 17.8 % (20-50); Potassium 4.4 mmol/L (3.5-5.1); Sodium 135 mmol/L (136-145); Total Bilirubin 0.4 mg/dL (0.15-1.2); Total Iron Binding Capacity 370 mcg/dl; Total Protein 7.5 g/dL (6.6-8.7); Unsaturated Iron Binding 304 ug/dL (112-347)
[2023-10-26 13:49] LABS: Vitamin B12 379 pg/mL (232-1245)
[2023-10-26 14:03] LABS: Folate Level > 20.0 ng/mL (4.8-37.3)
[2023-10-26 14:50] LABS: Basophils # 0.1 10^3/uL (0.0-0.1); Basophils % 1.3 %; Eosinophils # 0.4 10^3/uL (0.0-0.8); Eosinophils % 4.4 %; Hematocrit 44.4 % (36-47); Lymphocytes # 2.6 10^3/uL (0.8-4.8); Lymphocytes % 26.4 %; Mean Corpuscular HGB Conc 32.7 g/dL (30-55); Mean Corpuscular Hemoglobin 28.2 pg (27-33); Mean Corpuscular Volume 86.4 fl (85-98); Mean Platelet Volume 11.8 fL (7.4-10.4); Monocytes % 10.2 %; Neutrophils # 5.66 10^3/uL (1.8-7.7); Neutrophils % 57.4 %; Nucleated Red Blood Cells % 0 %; Platelet Count 317 10^3/cmm (157-399); Red Blood Count 5.14 10^6/uL (3.85-5.65); Red Cell Distribution Width 21.2 % (12.1-15.1); White Blood Count 9.85 10^3/uL (3.29-11.43)
== END 2023-11-16 23:59 | disposition home or self-care (01) ==
PROVIDERS: PCP Nurse Practitioner; Visit Provider Internal Medicine
DX: D64.9 Anemia, unspecified
CPT/HCPCS: 36415; 80053; 82607; 82728; 82746; 83540; 83550; 85025; 85045

== ENCOUNTER 2023-12-27 13:13 | Oncology outpatient (recurring) (ONCR) | payer MEDICAID, SELFPAY ==
[2023-12-27 13:42] LABS: Basophils # 0.1 10^3/uL (0.0-0.1); Basophils % 1.1 %; Eosinophils # 0.6 10^3/uL (0.0-0.8); Eosinophils % 5.3 %; Lymphocytes # 2.3 10^3/uL (0.8-4.8); Lymphocytes % 22.6 %; Mean Corpuscular HGB Conc 33.8 g/dL (30-55); Mean Platelet Volume 11.1 fL (7.4-10.4); Monocytes # 1.1 10^3/uL (0.2-0.9); Monocytes % 10.6 %; Neutrophils # 6.19 10^3/uL (1.8-7.7); Neutrophils % 60.1 %; Nucleated Red Blood Cells % 0 %; Platelet Count 335 10^3/cmm (157-399); Red Blood Count 4.35 10^6/uL (3.85-5.65); Red Cell Distribution Width 12.9 % (12.1-15.1)
[2023-12-27 13:58] LABS: Ferritin 18 ng/mL (15-150); Iron 51 ug/dL (37-145); Percent Saturation 14.5 % (20-50); Total Iron Binding Capacity 350 mcg/dl; Unsaturated Iron Binding 299 ug/dL (112-347)
== END 2024-01-16 23:59 | disposition home or self-care (01) ==
PROVIDERS: Nurse Practitioner Family; PCP Nurse Practitioner; Visit Provider Internal Medicine
DX: D50.9 Iron deficiency anemia, unspecified (principal)
CPT/HCPCS: 36415; 82728; 83540; 83550; 85025

== ENCOUNTER 2025-05-26 10:46 | Oncology outpatient (recurring) (ONCR) | payer MEDICAID, SELFPAY ==
[2025-05-26] MEDS: ferric derisomaltose 1,000 MG in sodium chloride 0.9% (100 ml) 100 ML 330 MG IV (12:21)
[2025-05-26 12:51] VITALS: BP 136/93; PULSE 77; RESP 16; TEMP 36.7; O2SAT 99
== END 2025-06-17 23:59 | disposition home or self-care (01) ==
PROVIDERS: PCP Nurse Practitioner; Visit Provider Internal Medicine Medical Oncology
DX: D50.9 Iron deficiency anemia, unspecified (principal); Z79.899 Other long term (current) drug therapy
CPT/HCPCS: 96365; J1437

== ENCOUNTER 2025-08-25 09:37 | Oncology outpatient (recurring) (ONCR) | payer MEDICAID, SELFPAY ==
[2025-08-25 09:56] LABS: Hematocrit 42.5 % (36-47); Hemoglobin 14.00 g/dL (11.27-16.99); Mean Corpuscular HGB Conc 32.9 g/dL (30-55); Mean Corpuscular Hemoglobin 30.9 pg (27-33); Mean Corpuscular Volume 93.8 fl (85-98); Nucleated Red Blood Cells % 0 %; Platelet Count 327 10^3/cmm (157-399); Red Blood Count 4.53 10^6/uL (3.85-5.65); White Blood Count 11.20 10^3/uL (3.29-11.43)
[2025-08-25 10:25] LABS: Alanine Aminotransferase 6 U/L (0-33); Albumin Level 4.1 g/dL (3.5-5.2); Alkaline Phosphatase 59 U/L (35-105); Aspartate Amino Transferase 11 U/L (0-32); Blood Urea Nitrogen 7 mg/dL (6-20); Calcium 9.0 mg/dL (8.5-10.5); Carbon Dioxide 21 mmol/L (22-29); Chloride 105 mmol/L (98-107); Ferritin 37 ng/mL (15-150); Globulin 3.1 g/dL (1.3-4.6); Glucose 94 mg/dL (65-115); Iron 45 ug/dL (37-145); Osmolality Calculated 288 mOsm/kg (285-295); Sodium 140 mmol/L (136-145); Total Iron Binding Capacity 307 mcg/dl; Total Protein 7.2 g/dL (6.6-8.7); Unsaturated Iron Binding 262 ug/dL (112-347)
[2025-08-25 10:27] LABS: Anion Gap 18.1 (5-19); Potassium 4.1 mmol/L (3.5-5.1)
[2025-08-25 10:34] LABS: Vitamin B12 427 pg/mL (232-1245)
== END 2025-09-17 23:59 | disposition home or self-care (01) ==
PROVIDERS: Internal Medicine Medical Oncology; PCP Nurse Practitioner; Visit Provider Nurse Practitioner Family
DX: D50.9 Iron deficiency anemia, unspecified (principal)
CPT/HCPCS: 36415; 80053; 82607; 82728; 82746; 83540; 83550; 85025